=== PATIENT | male | born 1975 | race Caucasian/White ===

== ENCOUNTER 2023-05-04 08:44 | Outpatient (AMB) | payer OTHER, SELFPAY ==
--- NOTE | 2023-05-04 08:47 | A.OFFPC_ITS ---
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 Accompanied by: Self / Same As Patient Allergies amoxicillin [AMOXICILLIN] Allergy (Unknown, Verified 05/04/23 09:07) SWELLING sulfamethoxazole [From BACTRIM] Allergy (Unknown, Verified 05/04/23 09:07) UNKNOWN trimethoprim [From BACTRIM] Allergy (Unknown, Verified 05/04/23 09:07) UNKNOWN Medication List - Last Reconciled 05/04/23 by Alexys Stephens MD No Known Home Meds Tobacco use date assessed: 05/04/23 Dental Screening Dental Screen Date: 05/04/23 Did you have a dental visit in the last 12 months?: Yes Did you have a dental problem in the last 6 months where you did not have access to dental care?: No Was dental information given to patient?: 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 Hwang for some ongoing stomach issues and Dr. Hwang wanted to check him out for any inflammatory bowel disease His procedures came out with positive findings of benign gastric polyps and mi nimal ileitis and proctitis; biopsies were all normal/benign and he was negative for H. pylori [facility] Medical History (Updated 05/04/23 @ 09:35 by Alexys Stephens MD) Obesity (BMI 30-39.9) Surgical History (Updated 05/04/23 @ 09:21 by Alexys Stephens MD) History of colonoscopy (~05/13/15) Hx of esophagogastroduodenoscopy (~05/13/15) No pertinent past surgical history Social History Housing: House Patient Tobacco Use Status: Never used Tobacco e-Cigarette/Vaping Use: Never Used service: No Current occupational status: employed Current occupational exposures/hazards: No Cognitive needs: No Hearing needs: No Vision needs: No Questionnaire PHQ-9 Over the last 2 weeks, how often have you been bothered by any of the following problems? 1. Little interest or pleasure in doing things: several days 2. Feeling down, depressed, or hopeless: not at all 3. Trouble falling or staying asleep, or sleeping too much: not at all 4. Feeling tired or having little energy: not at all 5. Poor appetite or overeating: not at all 6. Feeling bad about yourself - or that you are a failure or have let yourself or your family down: more than half the days 7. Trouble concentrating on things, such as reading the newspaper or watching television: not at all 8. Moving or speaking so slowly that other people could have noticed. Or the opposite - being so fidgety or restless that you have been moving around a lot more than usual: not at all 9. Thoughts that you would be better off or of hurting yourself in some way: not at all Total score: 3 Depression Screening Interpretation: Positive Depression Screening Follow-up: Declines treatment (feels that his situation is under control and he does not need any help at this time) 07237 - PHQ-9 Billing: Yes Source: Developed by Drs. Timothy Menard, Meghan Castro, Raymon Barrios and colleagues, with an educational gera from [employer]. Thrive Questionnaire Date Thrive assessed: 05/04/23 I am a: Patient What is your living situation today?: I have a steady place to live Within the past 12 months, did the food you bought not last and you didn't have the money to get more?: Never true Within the past 12 months, did you worry whether your food would run out before you got money to buy more?: Never true Do you have trouble paying for medicines?: No Do you have trouble getting transportation to medical appointments?: No Do you have trouble paying your heating and electricity bill?: No Do you have trouble taking care of your child, family member or friend?: No Do you have trouble with day-to-day activities such as bathing, preparing meals, shopping, managing finances, etc.?: No Are you currently unemployed and looking for a job?: No Are you interested in more education?: No Please select the resources that you would like help with: None Currently or been in a relationship where the following occur: no concerns reported AUDIT C Alcohol Use Questionnaire (AUDIT-C) 1. How often do you have a drink containing alcohol?: Never 3. How often do you have six or more drinks on one occasion?: Never Total Score: 0 Score Reviewed/Action Taken: Yes TIARA-7 AMB Questionnaire TIARA-7 Date TIARA - 7 assessed: 05/04/23 Feeling nervous, anxious, or on edge: 0 = Not at all Not being able to stop or control worryin = Not at all Worrying too much about different things: 0 = Not at all Trouble relaxin = Not at all Being so restless that it is hard to sit still: 0 = Not at all Becoming easily annoyed or irritable: 0 = Not at all Feeling afraid as if something awful might happen: 0 = Not at all Total TIARA-7 score (0-4 normal; 5-9 mild; 10-14 moderate; 15-21 severe): 0 Source: Developed by Drs. Timothy Menard, Meghan Castro, Raymon Barrios and colleagues, with an educational gera from [employer]. Review of Systems Const Denies chills, Denies difficulty sleeping, Denies fatigue, Denies fever(s), Denies headache(s), Denies malaise and Denies weakness Eyes Denies blurry vision, Denies change in vision, Denies irritation and Denies itchy eyes ENT Denies dysphagia, Denies dizziness, Denies otalgia, Denies headache(s), Denies nasal congestion, Denies neck pain, Denies odynophagia and Denies sore throat Card Denies chest pain, Denies rapid heart rate, Denies irregular heart rhythm, Denies palpitations and Denies dyspnea Resp Denies chest congestion, Denies cough, Denies dyspnea and Denies wheezing GI Denies abdominal pain, Denies bloating, Denies constipation, Denies dysphagia, Denies heartburn, Denies diarrhea, Denies nausea, Denies odynophagia and Denies vomiting Denies hematuria, Denies difficulty urinating, Denies dysuria, Denies urinary frequency and Denies urinary urgency Musc Denies back pain, Denies arthralgias, Denies joint swelling, Denies muscle weakness and Denies neck pain Skin/Breast Denies change in pigmentation, Denies lesions, Denies rash and Denies unusual bruising Neuro Denies dizziness, Denies headache(s), Denies paresthesias and Denies weakness Endo Denies fatigue and Denies palpitations Aller/Immun Denies itchy eyes and Denies wheezing Physical exam (Primary Care) Vital Signs: Last Vital Signs Pulse 65 05/04/23 08:55 BP 136/82 05/04/23 08:55 Pulse Ox 97 05/04/23 08:55 Oxygen Delivery Method Room Air 05/04/23 08:55 BMI result Body Mass Index 39.1 Tobacco/Smoking Status: Tobacco use Status Tobacco use date assessed 05/04/23 05/04/23 08:47 Patient Tobacco Use Status Never used Tobacco 05/04/23 09:02 e-Cigarette/Vaping Use Never Used 05/04/23 09:02 PHQ-9: PHQ-9 Score PHQ-9: Total score 6 05/04/23 09:02 Depression Screening Interpretation: Positive Depression Screening Follow-up: Declines treatment (feels that his situation is under control and he does not need any help at this time) Thrive Assessment: Date of Thrive Assessment Date Thrive assessed 05/04/23 05/04/23 09:02 Currently or been in a relationship where the following occur: no concerns reported Const General: no acute distress, alert and awake Orientation/consciousness: patient oriented x3 HENMT Head: Yes normocephalic and Yes atraumatic Ears: external ears normal, TM's normal bilaterally and EAC's normal General nose exam: No nasal discharge present Face and sinus: Yes normal facial exam and Yes sinuses nontender Teeth and gingiva: dentition normal Throat: Yes posterior oropharynx normal and Yes tonsils normal (no TP congestion) Eyes Eyelids: Yes eyelids normal Conjunctivae: conjunctivae normal Pupils: Equal, round and reactive pupils present EOM: EOMs intact bilaterally Neck Neck: Yes no lymphadenopathy and Yes supple Thyroid: Thyroid normal Resp Auscultation: clear to auscultation bilaterally, no rales and no wheezes Cardio Rate: regular rate Rhythm: regular rhythm Heart sounds: no murmurs GI Palpation (GI): Soft to palpation, nontender and No hepatosplenomegaly present Auscultation: normal bowel sounds General: Yes no CVA tenderness Back/Spine/Pelvis Back: no CVA tenderness Thoracic/Lumbar Spine: thoracic and lumbar spine normal to inspection Skin Lesions: no lesions Rashes: no rashes Neuro General: patient oriented x3, moves all extremities, no focal motor deficits and CN's II-XI intact bilaterally Cranial nerves: Yes Equal, round and reactive pupils present Cognition (Neuro): normal cognition Gait exam (Neuro): Normal gait present Extrem General: Yes no clubbing, cyanosis or edema Assessment and Plan Assessment & Plan (1) Annual physical exam: Code(s): Z00.00 - Encounter for general adult medical examination without abnormal findings Plan: Check labs - advised that we will reach out to him if any of his labs come back with unusual or unexpected results He had a grossly normal colonoscopy done back in 2014; advised that we now recommend starting colonoscopy screening at age 46 but as he had a normal colonoscopy done about 8 years ago, he can either choose to get another one done now or wait another year or two to get his next procedure done - patient prefers to wait at least another year before revisiting this (2) Positive depression screening: Code(s): Z13.31 - Encounter for screening for depression Plan: He reports that his symptoms are mostly mild and he does not feel that he needs any help or any intervention or counseling at this time Advised that he can call at any time if he feels that his depression/mood is getting worse (3) Obesity (BMI 30-39.9): Code(s): E66.9 - Obesity, unspecified Plan: Discussed diet, exercise as tolerated, lose weight Plan To return in 1 year for his next annual physical examination Orders: Orders Comprehensive [place]. Panel Fast Today E66.9 - Obesity, unspecified, Z00.00 - Encounter for general adult medical examination without abnormal findings Lipid Panel Today E66.9 - Obesity, unspecified, E78.00 - Pure hypercholesterolemia, unspecified, Z00.00 - Encounter for general adult medical examination without abnormal findings Prostate Specific Antigen Scr Today Z00.00 - Encounter for general adult medical examination without abnormal findings TSH reflex Free T4 Today E66.9 - Obesity, unspecified, Z00.00 - Encounter for general adult medical examination without abnormal findings Vitamin D 25-OH Total Today E55.9 - Vitamin D deficiency, unspecified, Z00.00 - Encounter for general adult medical examination without abnormal findings Complete Blood Count Auto Diff Today E66.9 - Obesity, unspecified, Z00.00 - Encounter for general adult medical examination without abnormal findings UA CC w/rflx Micro + Cult Today R30.0 - Dysuria, Z00.00 - Encounter for general adult medical examination without abnormal findings Coding Level of Care Code New Pt Prev Care 40-64y(57384) Diagnoses Annual physical exam Z00.00 Positive depression screening Z13.31 Obesity (BMI 30-39.9) E66.9
[2023-05-04 08:55] VITALS: BP 136/82; PULSE 65; O2SAT 97; BMI 39.1
[2023-05-04 09:26] VITALS: BP 120/78
== END 2023-05-04 09:28 | disposition home or self-care (01) ==
PROVIDERS: PCP Internal Medicine; Visit Provider Internal Medicine
DX: Z00.00 Encounter for general adult medical examination without abnormal findings (principal); E66.9 Obesity, unspecified; Z68.39 Body mass index [BMI] 39.0-39.9, adult
CPT/HCPCS: 99386

== ENCOUNTER 2023-11-04 09:19 | Outpatient (REF) | payer OTHER, SELFPAY ==
[2023-11-04 09:32] LABS: MANUAL DIFF FLAG NO
[2023-11-04 10:35] LABS: Basophils Percent Auto 0.5 % (0-2); Eosinophils Absolute Auto 0.1 X10*3/uL (0.0-0.4); Eosinophils Percent Auto 0.9 % (0-4); Hematocrit 45.1 % (42.0-52.0); Hemoglobin 15.2 g/dl (14.0-18.0); Imm Gran Abs Auto 0.02 X10*3/uL (0.00-0.03); Imm Gran Pct Auto 0.3 % (0.0-0.4); Lymphocytes Percent Auto 17.7 % (20-40); Mean Corpuscular HGB Conc 33.7 g/dl (31.0-36.0); Mean Corpuscular Volume 83.2 fL (80.0-98.0); Mean Platelet Volume 9.9 fL (9.4-12.4); Monocytes Absolute Auto 0.7 X10*3/uL (0.1-1.2); Monocytes Percent Auto 11.3 % (2-11); Neutrophils Percent Auto 69.3 % (45-73); Platelet Count 241 X10*3/uL (160-400); Red Blood Count 5.42 X10*6/uL (4.60-5.80); White Blood Count 5.8 X10*3/uL (4.8-10.8)
[2023-11-04 10:37] LABS: Appearance Urine Clear; Color Urine Yellow; Glucose Urine UA >=1000 mg/dL (Negative); Leukocyte Esterase Urine Negative (Negative); Nitrite Urine Negative (Negative); PH 5.5 (5.0-9.0); Specific Gravity - Urine >= 1.030 (1.005-1.025); UMIC TRIGGER UACC YES; Urine Blood Negative (Negative); Urine Ketones Trace mg/dL (Negative); Urine Protein Trace mg/dL (Neg-Trace)
[2023-11-04 10:50] LABS: Bacteria Urine None Seen (None Seen); Hyaline Casts Urine 0-2 /LPF (0-2); RBC Urine 0-2 /HPF (0-2); Squamous Epithelial Cell Urine 0-2 /HPF (0-2); WBC Urine 0-5 /HPF (0-5)
[2023-11-04 11:08] LABS: Alanine Aminotransferase 30 U/L (0-40); Albumin Level 4.5 g/dL (3.5-5.0); Alkaline Phosphatase 68 U/L (39-117); Anion Gap 14 (12-20); Aspartate Amino Transferase 20 U/L (5-37); Bilirubin Total 0.6 mg/dL (0.0-1.0); Blood Urea Nitrogen 14 mg/dL (9-16); Calcium 9.7 mg/dL (8.4-10.2); Carbon Dioxide 30 mmol/L (22-29); Chloride 103 mmol/L (96-108); Cholesterol 202 mg/dL (<200); Estimated Glomerular Filt Rate > 60; Glucose Fasting 243 mg/dL (60-99); HDL Cholesterol 47 mg/dL (>40); LDL Cholesterol Calculated 145 mg/dL (<100); Potassium 4.1 mmol/L (3.3-5.1); Sodium 143 mmol/L (135-145); Total Protein 7.3 g/dL (6.5-8.0); Triglycerides 54 mg/dL (<150)
[2023-11-04 11:25] LABS: Prostate Specific Antigen Scr 0.73 ng/mL (<0.05-4.0); TSH reflex Free T4 0.51 uIU/mL (0.32-4.0); Vitamin D 25-OH Total 7.4 ng/mL (>30)
== END 2023-11-04 09:20 | disposition home or self-care (01) ==
LOC: HO.LAB 09:19
PROVIDERS: PCP Internal Medicine; Visit Provider Internal Medicine
DX: Z00.00 Encounter for general adult medical examination without abnormal findings (principal); Z12.5 Encounter for screening for malignant neoplasm of prostate; E66.9 Obesity, unspecified; E55.9 Vitamin D deficiency, unspecified; E78.00 Pure hypercholesterolemia, unspecified
CPT/HCPCS: 36415; 80053; 80061; 81001; 82306; 84153; 84443; 85025

== ENCOUNTER 2024-05-22 09:57 | Outpatient (AMB) | payer OTHER, SELFPAY ==
[2024-05-22 09:58] VITALS: BP 140/98; PULSE 66; O2SAT 97; BMI 37.2
--- NOTE | 2024-05-22 09:58 | MHC.PC.OV ---
Vital Signs 05/22/24 09:58 Height 5 ft 8 in Weight 245 lb BMI 37.2 BP 140/98 H Blood Pressure Location Lt brachial Position Sitting Pulse 66 Pulse Source Pulse Oximeter Pulse Oximetry (%) 97 Oxygen Delivery Method Room Air Intake Visit Reasons: annual exam Intake Note: Patient is here today for a physical. 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 Allergies amoxicillin [AMOXICILLIN] Allergy (Unknown, Verified 05/22/24 10:23) SWELLING sulfamethoxazole [From BACTRIM] Allergy (Unknown, Verified 05/22/24 10:23) UNKNOWN trimethoprim [From BACTRIM] Allergy (Unknown, Verified 05/22/24 10:23) UNKNOWN Medication List - Last Reconciled 05/22/24 by Annmarie Feng PA-C cholecalciferol (vitamin D3) 25 mcg PO DAILY sildenafil 50 mg PO DAILY PRN Tobacco use date assessed: 05/22/24 Dental Screening Dental Screen Date: 05/22/24 Did you have a dental visit in the last 12 months?: Yes Did you have a dental problem in the last 6 months where you did not have access to dental care?: No Was dental information given to patient?: Patient has dentist HPI annual exam HPI Details 48-year-old male with past medical history of obesity last seen by Dr. Stephens coming in for annual visit. Last colonoscopy 2014 no polyps will be due next May. Patient has no acute concerns today. [facility] Medical History Obesity (BMI 30-39.9) Surgical History Hx of esophagogastroduodenoscopy (~05/13/15) History of colonoscopy (~05/13/15) No pertinent past surgical history Social History Housing: House Patient Tobacco Use Status: Never used Tobacco e-Cigarette/Vaping Use: Never Used service: No Current occupational status: employed Current occupational exposures/hazards: No Cognitive needs: No Hearing needs: No Vision needs: No Questionnaire PHQ-9 Over the last 2 weeks, how often have you been bothered by any of the following problems? 1. Little interest or pleasure in doing things: not at all 2. Feeling down, depressed, or hopeless: not at all 3. Trouble falling or staying asleep, or sleeping too much: not at all 4. Feeling tired or having little energy: not at all 5. Poor appetite or overeating: not at all 6. Feeling bad about yourself - or that you are a failure or have let yourself or your family down: not at all 7. Trouble concentrating on things, such as reading the newspaper or watching television: not at all 8. Moving or speaking so slowly that other people could have noticed. Or the opposite - being so fidgety or restless that you have been moving around a lot more than usual: not at all 9. Thoughts that you would be better off or of hurting yourself in some way: not at all Total score: 0 Depression Screening Interpretation: Negative Depression Screening Done: Yes 21407 - PHQ-9 Billing: Yes Source: Developed by Drs. Timothy Menard, Meghan Castro, Raymon Barrios and colleagues, with an educational gera from [employer]. Thrive Questionnaire Date Thrive assessed: 05/22/24 I am a: Patient What is your living situation today?: I have a steady place to live Within the past 12 months, did the food you bought not last and you didn't have the money to get more?: Never true Within the past 12 months, did you worry whether your food would run out before you got money to buy more?: Never true Do you have trouble paying for medicines?: No Do you have trouble getting transportation to medical appointments?: No Do you have trouble paying your heating and electricity bill?: No Do you have trouble taking care of your child, family member or friend?: No Do you have trouble with day-to-day activities such as bathing, preparing meals, shopping, managing finances, etc.?: No Are you currently unemployed and looking for a job?: No Are you interested in more education?: No Please select the resources that you would like help with: None Currently or been in a relationship where the following occur: No concerns reported THRIVE Score: 0 AUDIT C Alcohol Use Questionnaire (AUDIT-C) 1. How often do you have a drink containing alcohol?: Never 3. How often do you have six or more drinks on one occasion?: Never Total Score: 0 TIARA-7 AMB Questionnaire TIARA-7 Date TIARA - 7 assessed: 05/22/24 Feeling nervous, anxious, or on edge: 0 = Not at all Not being able to stop or control worryin = Not at all Worrying too much about different things: 0 = Not at all Trouble relaxin = Not at all Being so restless that it is hard to sit still: 0 = Not at all Becoming easily annoyed or irritable: 0 = Not at all Feeling afraid as if something awful might happen: 0 = Not at all Total TIARA-7 score (0-4 normal; 5-9 mild; 10-14 moderate; 15-21 severe): 0 Source: Developed by Drs. Timothy Menard, Meghan Castro, Raymon Barrios and colleagues, with an educational gera from [employer]. TIARA-7 Assessment Billing TIARA-7 Assessment Tool: TIARA-7 Assessment 61485 Review of Systems Const Denies body aches, Denies fatigue, Denies fever(s), Denies frequent falls, Denies headache(s) and Denies weakness Eyes Reports no additional complaints and Denies change in vision ENT Denies dysphagia, Denies dizziness, Denies facial pain, Denies headache(s), Denies nasal congestion and Denies odynophagia Card Denies chest pain, Denies syncope, Denies irregular heart rhythm, Denies leg edema, Denies lightheadedness and Denies dyspnea Resp Denies cough and Denies dyspnea GI Denies constipation, Denies dysphagia, Denies dyspepsia, Denies diarrhea, Denies nausea, Denies odynophagia and Denies vomiting Denies dysuria, Denies urinary frequency, Denies urinary hesitancy and Denies urinary urgency Musc Denies back pain and Denies myalgias Skin/Breast Reports system reviewed and no additional complaints, except as documented Neuro Denies dizziness, Denies syncope, Denies frequent falls, Denies headache(s) and Denies weakness Psych Reports no additional complaints Endo Denies fatigue Physical exam (Primary Care) Vital Signs: Last Vital Signs Pulse 66 05/22/24 09:58 BP 140/98 H 05/22/24 09:58 Pulse Ox 97 05/22/24 09:58 Oxygen Delivery Method Room Air 05/22/24 09:58 BMI result Body Mass Index 37.2 Tobacco/Smoking Status: Tobacco use Status Tobacco use date assessed 05/22/24 05/22/24 09:59 Patient Tobacco Use Status Never used Tobacco 05/22/24 09:59 e-Cigarette/Vaping Use Never Used 05/22/24 09:59 PHQ-9: PHQ-9 Score PHQ-9: Total score 0 05/22/24 10:06 Depression Screening Interpretation: Negative Thrive Assessment: Date of Thrive Assessment Date Thrive assessed 05/22/24 05/22/24 09:59 Currently or been in a relationship where the following occur: No concerns reported Const General: cooperative, healthy appearing, comfortable and no acute distress Orientation/consciousness: patient oriented x3 HENMT Head: Yes normocephalic Ears: hearing grossly normal bilaterally General nose exam: Normal external nose present Face and sinus: Yes normal facial exam and Yes sinuses nontender Mouth: Normal oral and palatal mucosa present and tongue normal Throat: Yes posterior oropharynx normal Eyes General: appearance normal, both eyes and all related structures Conjunctivae: conjunctivae normal Pupils: Equal, round and reactive pupils present EOM: EOMs intact bilaterally and No Nystagmus present Neck Neck: Yes full ROM and Yes no lymphadenopathy Chest Chest palpation & inspection: normal inspection of the chest Resp Effort & Inspection: normal respiratory effort Auscultation: clear to auscultation bilaterally, no crackles, no rales, no rhonchi and no wheezes Cardio Rate: regular rate Rhythm: regular rhythm Peripheral pulses: radial pulses present and dorsalis pedis present GI Inspection: Yes normal to inspection and No Abdominal wall edema Palpation (GI): Soft to palpation, not firm and nontender Auscultation: normal bowel sounds Rectal Exam - Male: Yes deferred General: Yes no CVA tenderness Back/Spine/Pelvis Back: no CVA tenderness Skin General skin exam: no rashes or lesions noted Neuro General: patient oriented x3 Cranial nerves: Yes Equal, round and reactive pupils present, Yes Midline tongue present, Yes Ability to bilaterally elevate shoulders present and No Nystagmus present Gait exam (Neuro): Normal gait present Extrem General: Yes normal to inspection, Yes full ROM and No edema Psych Speech and movement: Normal speech and movement present Affect: normal affect Attitude: cooperative Insight: Good insight present (Psych) Judgement: Good judgement present (Psych) Assessment and Plan Assessment & Plan (1) Annual physical exam: Code(s): Z00.00 - Encounter for general adult medical examination without abnormal findings Plan: Patient is up-to-date on all recommended routine screenings and vaccinations for his age. He is unsure of his last day of his tetanus shot but declines at this visit. Ordered for updated cholesterol and A1c for further evaluation. (2) Obesity (BMI 30-39.9): Code(s): E66.9 - Obesity, unspecified Plan: Patient states his diet is very poor. Recommend healthy diet and regular exercise. (3) Elevated blood pressure reading without diagnosis of hypertension: Code(s): R03.0 - Elevated blood-pressure reading, without diagnosis of hypertension Plan: Blood pressure was elevated in the office today patient states he has never had any problem with his blood pressure but does have a very poor diet. Advised patient to get [id number] blood pressure cuff and take blood pressure 3 to 4 times per week and keep a log to bring to next appointment. If blood pressures are persistently over 140/90 to reach out to the office. Plan This note was constructed using voice recognition software. While every effort has been made to ensure accuracy and security system engineer, still areas may have been included sometimes these areas may affect the content or meeting of the given symptoms. Total time spent caring for the patient today was 30 minutes. This includes time spent before the visit reviewing the chart, time spent during the visit, and time spent after the visit and documentation. Orders: Orders Hemoglobin A1c Today Z13.1 - Encounter for screening for diabetes mellitus Lipid Panel Today Z00.00 - Encounter for general adult medical examination without abnormal findings Coding Level of Care Code Est Pt Prev Care 40-64y(83776) Diagnoses Annual physical exam Z00.00 Obesity (BMI 30-39.9) E66.9 Elevated blood pressure reading without diagnosis of hypertension R03.0 Additional Codes TIARA-7 Assessment Billing - TIARA-7 Assessment Tool: TIARA-7 Assessment 46091 ([id number])
== END 2024-05-22 10:39 | disposition home or self-care (01) ==
PROVIDERS: PCP Internal Medicine
DX: Z00.00 Encounter for general adult medical examination without abnormal findings (principal); E66.9 Obesity, unspecified; R03.0 Elevated blood-pressure reading, without diagnosis of hypertension; Z68.37 Body mass index [BMI] 37.0-37.9, adult
CPT/HCPCS: 99396

== ENCOUNTER 2025-02-21 15:47 | Outpatient (AMB) | payer OTHER, SELFPAY ==
[2025-02-21 16:15] VITALS: BP 150/98; PULSE 64; RESP 18; TEMP 36.9; O2SAT 97; BMI 37.9
--- NOTE | 2025-02-21 16:15 | MHC.PC.OV ---
Vital Signs 02/21/25 16:15 Height 5 ft 8 in Weight 249 lb 3.2 oz BMI 37.9 BP 150/98 H Blood Pressure Location Lt brachial Position Sitting Respiration 18 Pulse 64 Pulse Source Pulse Oximeter Temp 98.4 F Temp Source Oral Pulse Oximetry (%) 97 Oxygen Delivery Method Room Air Intake Visit Reasons: f/u HLD and HTN Hat Renovator Required: No Accompanied by: Spouse Allergies amoxicillin [AMOXICILLIN] Allergy (Unknown, Verified 02/21/25 16:19) SWELLING sulfamethoxazole [From BACTRIM] Allergy (Unknown, Verified 02/21/25 16:19) UNKNOWN trimethoprim [From BACTRIM] Allergy (Unknown, Verified 02/21/25 16:19) UNKNOWN Medication List - Last Reconciled 02/21/25 by GEOFF Preston metformin 1,000 mg PO BID sildenafil 50 mg PO DAILY PRN Tobacco use date assessed: 02/21/25 Dental Screening Dental Screen Date: 02/21/25 Did you have a dental visit in the last 12 months?: Yes Did you have a dental problem in the last 6 months where you did not have access to dental care?: No Was dental information given to patient?: Patient has dentist HPI f/u HLD and HTN HPI Details The patient is a 49 year old male presenting for follow up appointment on HLD, HTN and new diagnosis of diabetes. On 01/31/2025 the patient went into [place] ED with complaints of weakness. 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 He reports that he started feeling weak and floppy, followed by perfused sweating. The patient went into the emergency room with complaints of racing heartbeats and mild shortness of breath, but no chest pain. His blood pressure was 208/118, then 170/110 couple was after. EKG NSR with no ST-wave changes. Glucose 565 with normal anion gap and bicarb level. A1c 12.7, LDL 174, total cholesterol 245, HDL 55. Chest x-ray unremarkable. The patient is presenting today accompanied by his with concerns of the new diagnosis of diabetes. Per chart review, the patient had an elevated fasting glucose 243 on 11/04/2023. He was seen in May 2024 in office, and was ordered repeat lipid panel and A1c. Per patient, he did not get these tests done because he did not think that his condition was as serous. The patient was started on Meformin 1000mg BID in the ER and he was instructed to follow-up with PCP. [facility] Medical History Obesity (BMI 30-39.9) Surgical History Hx of esophagogastroduodenoscopy (~05/13/15) History of colonoscopy (~05/13/15) No pertinent past surgical history Social History Housing: House Patient Tobacco Use Status: Never used Tobacco e-Cigarette/Vaping Use: Never Used service: No Current occupational status: employed Current occupational exposures/hazards: No Cognitive needs: No Hearing needs: No Vision needs: No Questionnaire PHQ-9 Over the last 2 weeks, how often have you been bothered by any of the following problems? 1. Little interest or pleasure in doing things: not at all 2. Feeling down, depressed, or hopeless: not at all 3. Trouble falling or staying asleep, or sleeping too much: not at all 4. Feeling tired or having little energy: not at all 5. Poor appetite or overeating: not at all 6. Feeling bad about yourself - or that you are a failure or have let yourself or your family down: not at all 7. Trouble concentrating on things, such as reading the newspaper or watching television: not at all 8. Moving or speaking so slowly that other people could have noticed. Or the opposite - being so fidgety or restless that you have been moving around a lot more than usual: not at all 9. Thoughts that you would be better off or of hurting yourself in some way: not at all Total score: 0 Depression Screening Interpretation: Negative Depression Screening Done: Yes 48325 - PHQ-9 Billing: Yes Source: Developed by Drs. Timothy Menard, Meghan Castro, Raymon Barrios and colleagues, with an educational gera from [employer]. Thrive Questionnaire Date Thrive assessed: 02/21/25 I am a: Patient What is your living situation today?: I have a steady place to live Within the past 12 months, did the food you bought not last and you didn't have the money to get more?: Never true Within the past 12 months, did you worry whether your food would run out before you got money to buy more?: Never true Do you have trouble paying for medicines?: No Do you have trouble getting transportation to medical appointments?: No Do you have trouble paying your heating and electricity bill?: No Do you have trouble taking care of your child, family member or friend?: No Do you have trouble with day-to-day activities such as bathing, preparing meals, shopping, managing finances, etc.?: No Are you currently unemployed and looking for a job?: No Are you interested in more education?: No Please select the resources that you would like help with: None Currently or been in a relationship where the following occur: No concerns reported THRIVE Score: 0 AUDIT C Alcohol Use Questionnaire (AUDIT-C) 1. How often do you have a drink containing alcohol?: Never Total Score: 0 Score Reviewed/Action Taken: No TIARA-7 AMB Questionnaire TIARA-7 Date TIARA - 7 assessed: 02/21/25 Feeling nervous, anxious, or on edge: 0 = Not at all Not being able to stop or control worryin = Not at all Worrying too much about different things: 0 = Not at all Trouble relaxin = Not at all Being so restless that it is hard to sit still: 0 = Not at all Becoming easily annoyed or irritable: 0 = Not at all Feeling afraid as if something awful might happen: 0 = Not at all Total TIARA-7 score (0-4 normal; 5-9 mild; 10-14 moderate; 15-21 severe): 0 Source: Developed by Drs. Timothy Menard, Meghan Castro, Raymon Barrios and colleagues, with an educational gera from [employer]. TIARA-7 Assessment Billing TIARA-7 Assessment Tool: ITARA-7 Assessment 12987 Review of Systems Const Denies headache(s) Eyes Denies loss of vision ENT Denies vertigo, Denies dizziness, Denies headache(s) and Denies sore throat Card Denies chest pain, Denies leg edema and Denies lightheadedness Resp Denies cough, Denies hemoptysis and Denies wheezing GI Denies abdominal pain, Denies melena, Denies constipation, Denies diarrhea and Denies vomiting Denies dysuria, Denies urinary frequency and Denies urinary urgency Musc Denies arthralgias, Denies joint swelling, Denies numbness and Reports tingling (in fingers intermittently) Skin/Breast Denies lesions and Denies rash Neuro Denies Abnormal speech present, Denies behavioral changes, Denies vertigo, Denies dizziness, Denies headache(s), Denies loss of vision, Denies memory loss, Denies numbness and Reports tingling (in fingers intermittently) Psych Denies anxiety, Denies behavioral changes, Denies depression, Denies memory loss and Denies panic attacks Jared/Lymph Denies easy bleeding and Denies easy bruising Aller/Immun Denies wheezing Physical exam (Primary Care) Vital Signs: Last Vital Signs Temp 98.4 F 02/21/25 16:15 Pulse 64 02/21/25 16:15 Resp 18 02/21/25 16:15 BP 150/98 H 02/21/25 16:15 Pulse Ox 97 02/21/25 16:15 Oxygen Delivery Method Room Air 02/21/25 16:15 BMI result Body Mass Index 37.9 Tobacco/Smoking Status: Tobacco use Status Tobacco use date assessed 02/21/25 02/21/25 16:21 Patient Tobacco Use Status Never used Tobacco 02/21/25 16:21 e-Cigarette/Vaping Use Never Used 02/21/25 16:21 PHQ-9: PHQ-9 Score PHQ-9: Total score 0 02/21/25 17:18 Depression Screening Interpretation: Negative Thrive Assessment: Date of Thrive Assessment Date Thrive assessed 02/21/25 02/21/25 16:21 Currently or been in a relationship where the following occur: No concerns reported Const General: healthy appearing, no acute distress, alert and awake Nutritional Appearance: well nourished Orientation/consciousness: oriented to person, oriented to place and oriented to time HENMT Ears: TM's normal bilaterally General nose exam: Normal nasal mucous membranes and turbinates present Eyes Conjunctivae: conjunctivae normal Sclerae: sclerae normal Pupils: Equal, round and reactive pupils present Neck Neck: Yes no lymphadenopathy and Yes no JVD Thyroid: Thyroid normal Carotids: no bruits Resp Effort & Inspection: normal respiratory effort and not tachypneic Auscultation: no crackles, no rales, no rhonchi and no wheezes Cardio Rate: regular rate Rhythm: regular rhythm Heart sounds: no murmurs and normal S1 and S2 GI Palpation (GI): Soft to palpation, nontender, no hepatomegaly and no splenomegaly Auscultation: normal bowel sounds Skin General skin exam: no rashes or lesions noted and dry skin Neuro General: oriented to person, oriented to place and oriented to time Cranial nerves: Yes Equal, round and reactive pupils present Speech: No Abnormal speech present Gait exam (Neuro): Normal gait present Motor exam (neuro): no tremor noted Extrem Right upper extremity: full ROM Left upper extremity: full ROM Right lower extremity: full ROM; no edema Left lower extremity: full ROM; no edema Psych Mental Status: mental status grossly normal Speech and movement: Normal speech and movement present Affect: normal affect Attitude: cooperative Thought process: Normal thought process present Coding Level of Care Code Est Pt Level 4 (21134) Diagnoses Hyperlipidemia, unspecified hyperlipidemia type E78.5 Hyperlipidemia type: unspecified Elevated blood pressure reading without diagnosis of hypertension R03.0 Uncontrolled type 2 diabetes mellitus with hyperglycemia E11.65 Diabetes mellitus type: type 2 Additional Codes TIARA-7 Assessment Billing - TIARA-7 Assessment Tool: TIARA-7 Assessment 16787 ([id number]) PHQ-9 - 91151 - PHQ-9 Billing: Yes ([id number]) Time Spent (min) 43 Assessment & Plan Assessment & Plan (1) HLD (hyperlipidemia): Code(s): E78.5 - Hyperlipidemia, unspecified Category: Medical Qualifiers: Hyperlipidemia type: unspecified Qualified Code(s): E78.5 - Hyperlipidemia, unspecified Plan: t-chol 245, ldl 174, hdl 55 start atorvastatin 10 at bedtime Discussed lifestyle modifications including dietary changes and physical activity We will check lipid panel in 3 months (2) Elevated blood pressure reading without diagnosis of hypertension: Code(s): R03.0 - Elevated blood-pressure reading, without diagnosis of hypertension Category: Medical Plan: Blood pressure elevated at 150/98, continue to be elevated on rechecks Started lisinopril 10 mg daily Return in 1 week for blood pressure check by nurse Encouraged to check blood pressure at home frequently Reinforced low-salt diet and activity as tolerated (3) Uncontrolled diabetes mellitus with hyperglycemia: Code(s): E11.65 - Type 2 diabetes mellitus with hyperglycemia Category: Medical Qualifiers: Diabetes mellitus type: type 2 Qualified Code(s): E11.65 - Type 2 diabetes mellitus with hyperglycemia Plan: Patient was started on metformin to a 1000 mg b.i.d. in the ED. he verbalized medication compliance but reports that the side effects have been very bad. He is constantly running to the bathroom. Metformin 1000 mg ER b.i.d. ordered. Lantus 10 units ordered for the patient to start after diabetic teaching. Diabetic supplies were ordered. Return in 1 week for diabetic teaching-nurse visit Will repeat A1C in 3 months Orders: Orders Comprehensive [place]. Panel Fast 3 Months E11.65 - Type 2 diabetes mellitus with hyperglycemia, E66.9 - Obesity, unspecified, E78.5 - Hyperlipidemia, unspecified, Z13.1 - Encounter for screening for diabetes mellitus TSH reflex Free T4 3 Months E11.65 - Type 2 diabetes mellitus with hyperglycemia, E66.9 - Obesity, unspecified, E78.5 - Hyperlipidemia, unspecified, Z13.1 - Encounter for screening for diabetes mellitus Hemoglobin A1c 3 Months E11.65 - Type 2 diabetes mellitus with hyperglycemia, E66.9 - Obesity, unspecified, E78.5 - Hyperlipidemia, unspecified, Z13.1 - Encounter for screening for diabetes mellitus UA CC w/rflx Micro + Cult 3 Months E11.65 - Type 2 diabetes mellitus with hyperglycemia, E66.9 - Obesity, unspecified, E78.5 - Hyperlipidemia, unspecified, Z13.1 - Encounter for screening for diabetes mellitus Microalbumin, Random (w Creat) 3 Months E11.65 - Type 2 diabetes mellitus with hyperglycemia, E66.9 - Obesity, unspecified, E78.5 - Hyperlipidemia, unspecified, Z13.1 - Encounter for screening for diabetes mellitus Lipid Panel 3 Months E11.65 - Type 2 diabetes mellitus with hyperglycemia, E66.9 - Obesity, unspecified, E78.5 - Hyperlipidemia, unspecified, Z13.1 - Encounter for screening for diabetes mellitus Medications: 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,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,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 (Dexcom G7 Triple Valve Mechanic) As directed 1 ea 0RF .65 - Type 2 diabetes mellitus with hyperglycemia blood-glucose sensor (Dexcom G7 Sensor device) As directed 1 ea 0RF E11.65 - Type 2 diabetes mellitus with hyperglycemia atorvastatin 10 mg PO BEDTIME 90 tabs 3RF magnesium oxide 400 mg PO DAILY 90 tabs 3RF metformin ER 1,000 mg (2 x 500 mg) PO BID 60 tabs 3RF E11.65 - Type 2 diabetes mellitus with hyperglycemia insulin glargine (Lantus Solostar U-100 Insulin) 10 units (0.1 mL) subcut DAILY 15 mL 2RF E11.65 - Type 2 diabetes mellitus with hyperglycemia blood-glucose meter (OneMorePalletTouch Verio Reflect Meter) As directed check blood sugar three times a day 1 ea 3RF E11.65 - Type 2 diabetes mellitus with hyperglycemia blood sugar diagnostic (OneTouch Verio test strips) As directed check blood sugar three times a day 100 ea 3RF E11.65 - Type 2 diabetes mellitus with hyperglycemia lancets As directed check blood sugar three times a day 100 ea 3RF E11.65 - Type 2 diabetes mellitus with hyperglycemia lisinopril 10 mg PO DAILY 30 tabs 3RF R03.0 - Elevated blood-pressure reading, without diagnosis of hypertension blood-glucose sensor ([employer] G7 Sensor device) As directed 1 ea 3RF E11.65 - Type 2 diabetes mellitus with hyperglycemia
== END 2025-02-21 17:22 | disposition home or self-care (01) ==
LOC: HO.HMCH 15:48
PROVIDERS: PCP Internal Medicine
DX: E78.5 Hyperlipidemia, unspecified (principal); R03.0 Elevated blood-pressure reading, without diagnosis of hypertension; E11.65 Type 2 diabetes mellitus with hyperglycemia

== ENCOUNTER → 2025-02-21 15:47 | Outpatient (BNVA) | payer OTHER, SELFPAY | PROVIDERS: PCP Internal Medicine | DX: I10 Essential (primary) hypertension (principal); E11.65 Type 2 diabetes mellitus with hyperglycemia; E78.5 Hyperlipidemia, unspecified; R53.1 Weakness; R03.0 Elevated blood-pressure reading, without diagnosis of hypertension; E66.9 Obesity, unspecified; Z68.37 Body mass index [BMI] 37.0-37.9, adult | CPT/HCPCS: 96127 ==

== ENCOUNTER 2025-04-17 07:45 | Outpatient (AMB) | payer OTHER, SELFPAY ==
--- OUTSIDE RECORDS SUMMARY | 2025-04-17 07:47 | XMS_ITS | Patient Health Record ---
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 Name Role Phone Sai (RETIRED) Jeanmarie FOSTER Primary Care Provide r Bj Angeles Jr Unavailable [phone] Allergies Allergen (clinical drug ingredient) Drug/Non Drug Allergy documented on EMR Reaction Allergy Type Onset Date Status sulfamethoxazole / trimethoprim Bactrim Unknown Drug Allergy Active amoxicillin Amoxicillin Unknown Drug Allergy Act fred Reason For Referral No Information Medications Medication SIG (Take, Route, Fr equency, Duration) Notes Start Date End Date Status Suprep Bowel Prep 1 as directed Orally 1 for 1 dose 04/23/2015 Active Omeprazole 20 MG 1 capsule Orally Onc e a day for 30 day(s) 04/23/2015 Active Lorazepam 1 1 tab Oral Active Dicyclomine HCl 20 MG 1 tablet Orally 2- 4 times a day 05/15/2015 Active Anusol-HC 25 MG 1 suppository Rectal At night before bed time for 14 day(s) 05/15/2015 Ac tive Problems Problem Type SNOMED Code ICD Code Onset Dates Problem Status W/U Status Risk Notes Problem [id number] Vomiting (787.03) Active confirmed Problem [id number] Abnormal CT scan , gastrointestinal tract (793.4) Active confirmed Plan Of Treatment Future Test Test Name Order Date UPPER GI ENDOSCOPY 04/23/2015 COLONOSCOPY 04/23/2015 Insurance Providers Payer Name Payer Address Payer Phone Subscriber Number Group Number Insured Name Patient Relationship to Insured Coverage Start Date Coverage End Date [facility] [id number] [place], [place] [id number] [phone] [id number] [address] RIVERA Self - patient is the insured Medical (General) History Medical History History ICD Code Denies OK,DM,CVA,Lung disease,renal dise ase
--- OUTSIDE RECORDS SUMMARY | 2025-04-17 07:47 | XMS_ITS | Clinical Summary ---
Author Organization [facility] Address [address] [place] [phone] Phone Care Team Providers Care Hedge Fund Manager Name Role Phone Jeanmarie Gibbs MD Primary Care Provider Allergies Active Allergy Reactions Criticality Noted Date Comments Amoxicillin Hives 05/21/2019 Swelling of throat Sulfamethoxazole-Trimethoprim Hives 2018 Swelling of throat Penicillins Hives Medium 05/21/2019 Swelling of throat Medications oxyCODONE-aceta minophen (PERCOCET) 5-325 mg per tablet Take 1 tablet by mouth every 4 (four) hours as needed for pain (specific location in comments). Partial fill ok 8 tablet 9 Active Additional Information Patient not taking.Reported on 04/04/2024 tamsulosin (FLOMAX) 0.4 mg Cap Take 1 capsule (0.4 mg total) by mouth daily. 7 capsule 9 Active Additional Information Patient not taking.Reported on 04/04/2024 sildenafiL (VIAGRA) 25 mg tablet Take 25 mg by mouth daily as needed for erectile dysfunction. Active Social History Tobacco Use Types Packs/Day Years Used Date Smoking Tobacco: Never Smokeless Tobacco: Never Alcohol Use Standard Drinks/Week Comments Not Currently 0 (1 standard drink = 0.6 oz pur e alcohol) Education Answer Date Recorded Are you interested in more education? Not on hallie e 01/06/2023 Are you concerned about learning? Not on file 01/06/2023 No 01/06/2023 No 01/06/2023 Digital Access Answer Date Recorded No 02/06/2023 No 02/06/2023 Reliable internet access at home? Not on file 02/06/2023 Device with a working camera? Not on file Sex and Gender Information Value Date Recorded Sex Assigned at Not on file Legal Sex Male 9:27 PM EDT Gender Identity Not on file Sexual Orientation Not on file Last Filed Vital Signs Vital Sign Reading Time Taken Comments Blood Pressure 182/112 04/06/2024 11:11 AM EDT Pulse 83 04/06/2024 10:21 AM EDT Temperature 36.9 C (98.5 F) 04/06/2024 10:21 AM EDT Respiratory Rate 16 04/06/2024 10:21 AM EDT Oxygen Saturation 97% 04/06/2024 10:21 AM EDT Inhaled Oxygen Concentration - - Weight 115.7 kg (255 lb) 04/06/2024 10:21 AM EDT Height 172.7 cm (5' 8 ) 04/06/2024 10:21 AM EDT Body Mass Index 38.77 04/06/2024 10:21 AM EDT Plan of Treatment Health Maintenance Due Date Last Done Comments Adult Td,Tdap Booster 1976 LIPID PANEL 1976 DEPRESSION SCREENING 1988 HEPATITIS C SCREENING 1994 HIV ONE-TIME SCREENING (18-6 5 YEARS) 1994 COLOGUARD 2021 COLONOSCOPY 2021 COLORECTAL CANCER SCREENING 2021 FIT TEST 2021 FOBT 2021 SIGMOIDOSCOPY 2021 VIRTUAL COLONOSCOPY 2021 SCREENING FOR DIABETES 05/21/2022 05/21/2019 COVID-19 VACCINE (3 - 2023-2 5 season) 2024 04/14/2021, 03/24/2021 SMOKING STATUS SCREENING (On ce After 26 Yrs) Completed 04/06/2024 HEPATITIS A VACCINES Aged Out No long er eligible based on patient's age to complete this topic HIB VACCINES Aged Out No longer eligi ble based on patient's age to complete this topic MENINGOCOCCAL VACCINES (ACWY) Aged Out No longer eligible based on patient's age to complete this topic MENINGOCOCCAL VACCINES (B) Aged Out N o longer eligible based on patient's age to complete this topic PNEUMOCOCCAL VACCINES (0-49 years) Aged Out No longer eligible b ased on patient's age to complete this topic Medical Devices Not on file Insurance [address] [place], [place] [id number] [facility] HMO Care Teams Hedge Fund Manager Relationship Specialty Start Date End Date Jeanmarie Gibbs MD [address] [place] [id number] PCP - General Internal Medicine 05/21/19 Additional Source Comments The information contained in this document represents components of the legal health record. It is not the complete legal health record.[facility]
--- NOTE | 2025-04-17 07:56 | A.OFFVIS_ITS ---
Vital Signs 04/17/25 08:02 Height 5 ft 8 in Weight 239 lb 3.225 oz BMI 36.4 BP 112/86 Blood Pressure Location Rt brachial Position Sitting Pulse 60 Pulse Source Pulse Oximeter Pulse Oximetry (%) 96 Oxygen Delivery Method Room Air Intake Visit Reasons: Type 2 diabetes mellitus with hyperglycemia Intake Note: New patient internally referred by PCP for T2DM with Hyperglycemia. Patient receives Dexcom G7 supplies through: [employer]. Last Diabetic Eye exam: a couple months ago, [facility] Last Podiatry Visit: Does not see a Burn Out Scarfing Operator Random Glucose: 141 mg/dl HgA1C: 8.3% 04/17/2025 Distribution Collection Operator Required: No Accompanied by: Spouse Allergies amoxicillin (AMOXICILLIN) Allergy (Unknown, Verified 04/17/25 08:03) SWELLING sulfamethoxazole (From BACTRIM) Allergy (Unknown, Verified 04/17/25 08:03) UNKNOWN trimethoprim (From BACTRIM) Allergy (Unknown, Verified 04/17/25 08:03) UNKNOWN HPI Comments Details: 49 YO M who is seen in consultation for T2DM at the request of PCP. Initially diagnosed with T2DM in 01/2025 . Was initially started on treatment with metformin . Current regimen Lantus 10 units 02/2025 by PCP not started . Metformin 1000mg BID tolerating Has Dexcom Unfortunately, patient did not bring sensor glucometer will log book to visit. GMI 7.1 Reports low sugars rare . Treats lows with protein bar . Checks sugar after to ensure it is rising. Treats according to rule of 15's. Family history of T2DM in father Type 2 . Has eyes checked yearly, last eye exam couple of mos ago , denies retinopathy. Denies neuropathy, not sees podiatry. Denies nephropathy, on SANDI/ARB. UAC [] as measured on []. Has HLD, on statin. Last LDL 11/04. Repeat requested by primary care provider Denies CAD. Not Had diabetes education. [facility] Medical History Obesity (BMI 30-39.9) Surgical History Hx of esophagogastroduodenoscopy (~05/13/15) History of colonoscopy (~05/13/15) No pertinent past surgical history Social History Housing: House Patient Tobacco Use Status: Never used Tobacco e-Cigarette/Vaping Use: Never Used service: No Current occupational status: employed Current occupational exposures/hazards: No Cognitive needs: No Hearing needs: No Vision needs: No Physical Exam Vital Signs: Last Vital Signs Pulse 60 04/17/25 08:02 BP 112/86 04/17/25 08:02 Pulse Ox 96 04/17/25 08:02 Oxygen Delivery Method Room Air 04/17/25 08:02 BMI result Body Mass Index 36.4 Absence of Cushingoid features. Absence of acromegalic features. Neck exam reveals nl size thyroid about 15 gms. No thyroid nodules palpable. No carotid bruits present. Lungs CTA. Heart S1 S2, Reg R/R. No M/R/ G. Skin exam reveals absence of vitiligo or acanthosis nigricans. Abdominal exam reveals Soft NT/ND with NA BS. No organomegaly present. Neck Other: . Extrem Other: Visual exam of foot performed. No ulcerations or open lesions. No onchomycosis, no callouses.Pulses 2 + distally Sensation intact to monofilament exam. Vibratory sensation sensed is decreased with 128 Hz tuning fork Results AMB Hemoglobin A1c AMB Hemoglobin A1c 8.3 % Last Edit by AMANDA Crawford on 04/17/25 08:27 Results Reviewed Results Reviewed: Laboratory Last Values Glucose (Clinic) 141 mg/dL (60-115) H 04/17/25 08:09 Assessment & Plan Assessment & Plan (1) Uncontrolled diabetes mellitus with hyperglycemia: Code(s): E11.65 - Type 2 diabetes mellitus with hyperglycemia Category: Medical Qualifiers: Diabetes mellitus type: type 2 Qualified Code(s): E11.65 - Type 2 diabetes mellitus with hyperglycemia Plan: This is a 49-year-old white male with a history of type 2 diabetes being treated with metformin and basal insulin with poor but improving glycemic control and no known microvascular or macrovascular complications The plan is to have the patient check his point of cares pre and post meals what to use the Dexcom sensor and to bring the sensor to follow up appointments. We will talk to the patient about potentially starting a G LP 1 today like Mounjaro. Went over side effects of Mounjaro including but not limited to nausea, vomiting and rare risk of pancreatitis. Once we have more data, could consider adjusting the insulin regimen. We will send patient to certified adapted physical educator and eviction specialist. We will ask patient to check lipid profile microalbumin to creatinine ratio as ordered by patient's primary care provider. Blood pressure management as per patient's primary care provider. Went over with the patient the correlation of poor glycemic control to development of progression of complications. May consider stopping basal insulin future if patient responds and is tolerant of the G LP 1 Orders: Orders AMB Hemoglobin A1c Today E11.65 - Type 2 diabetes mellitus with hyperglycemia Referrals Nutrition/Dietitian Referral E11.65 - Type 2 diabetes mellitus with hyperglycemia Diabetes Education Referral E11.65 - Type 2 diabetes mellitus with hyperglycemia Medications: New tirzepatide (Mounjaro) for 4 weeks 2.5 mg (0.5 mL) subcut QWEEK 2 mL 5RF Coding Level of Care Code New Pt Level 5 (61219) Diagnoses Uncontrolled type 2 diabetes mellitus with hyperglycemia E11.65 Diabetes mellitus type: type 2 Time Spent (min) 60
[2025-04-17 08:02] VITALS: BP 112/86; PULSE 60; O2SAT 96; BMI 36.4
[2025-04-17 08:13] LABS: Glucose, Whole Blood 141 mg/dL (60-115)
== END 2025-04-17 08:44 | disposition home or self-care (01) ==
LOC: HO.ENCR 07:46
PROVIDERS: PCP Internal Medicine; Visit Provider Internal Medicine Endocrinology, Diabetes & Metabolism
DX: E11.65 Type 2 diabetes mellitus with hyperglycemia (principal); Z79.4 Long term (current) use of insulin
CPT/HCPCS: 99205

== ENCOUNTER → 2025-04-17 07:45 | Outpatient (BNVA) | payer OTHER, SELFPAY | PROVIDERS: PCP Internal Medicine; Visit Provider Internal Medicine Endocrinology, Diabetes & Metabolism | DX: E11.65 Type 2 diabetes mellitus with hyperglycemia (principal) | CPT/HCPCS: 82947; 83036 ==

== ENCOUNTER 2025-04-17 09:00 | Outpatient (REF) | payer OTHER, SELFPAY ==
[2025-04-17 10:49] LABS: Appearance Urine Clear; Glucose Urine UA Negative (Negative); PH 7.5 (5.0-9.0); Specific Gravity - Urine 1.020 (1.005-1.025)
[2025-04-17 10:57] LABS: Hemoglobin A1C 236.7896 umol/L; Total Hemoglobin (HGBA1C) 3642.4061 umol/L
[2025-04-17 11:20] LABS: Alanine Aminotransferase 24 U/L (0-40); Albumin Level 4.8 g/dL (3.5-5.0); Alkaline Phosphatase 59 U/L (39-117); Anion Gap 12 (12-20); Aspartate Amino Transferase 22 U/L (5-37); Blood Urea Nitrogen 14 mg/dL (9-16); Calcium 9.0 mg/dL (8.4-10.2); Carbon Dioxide 30 mmol/L (22-29); Chloride 105 mmol/L (96-108); Cholesterol 166 mg/dL (<200); Estimated Glomerular Filt Rate > 60; HDL Cholesterol 48 mg/dL (>40); Potassium 4.0 mmol/L (3.3-5.1); Sodium 143 mmol/L (135-145); Total Protein 7.3 g/dL (6.5-8.0); Triglycerides 40 mg/dL (<150)
[2025-04-17 11:25] LABS: Microalbum/Creatinine Ratio Ur 7.5 ug/mg cr (<30)
== END 2025-04-17 09:01 | disposition home or self-care (01) ==
LOC: HO.10HDL 09:00
DX: E11.65 Type 2 diabetes mellitus with hyperglycemia (principal); E78.5 Hyperlipidemia, unspecified; E66.9 Obesity, unspecified
CPT/HCPCS: 36415; 80053; 80061; 81003; 82043; 82570; 83036; 84443

== ENCOUNTER 2025-05-20 07:55 | Outpatient (AMB) | payer OTHER, SELFPAY ==
--- NOTE | 2025-05-20 07:59 | A.OFFVIS_ITS ---
Vital Signs 05/20/25 08:01 Height 5 ft 8 in Weight 232 lb 9.403 oz BMI 35.4 BP 126/74 Blood Pressure Location Rt brachial Position Sitting Pulse 74 Pulse Source Pulse Oximeter Pulse Oximetry (%) 97 Oxygen Delivery Method Room Air Intake Visit Reasons: Type 2 diabetes mellitus with hyperglycemia Intake Note: Patient present today for T2DM. Patient receives Dexcom G7 supplies through: [employer]. Last Diabetic Eye exam: a couple months ago, [facility] Last Podiatry Visit: Does not see a Commercial Fishing Vessel Operator Random Glucose: 138 mg/dl HgA1C: 8.3% 04/17/2025 Balancing Machine Operator Required: No Accompanied by: Spouse Allergies amoxicillin (AMOXICILLIN) Allergy (Unknown, Verified 05/20/25 08:02) SWELLING sulfamethoxazole (From BACTRIM) Allergy (Unknown, Verified 05/20/25 08:02) UNKNOWN trimethoprim (From BACTRIM) Allergy (Unknown, Verified 05/20/25 08:02) UNKNOWN Medication List - Last Reconciled 05/20/25 by Timothy Peter MD atorvastatin 10 mg PO BEDTIME blood sugar diagnostic (OneTouch Verio test strips) As directed check blood sugar three times a day blood-glucose meter (OneTouch Verio Reflect Meter) As directed check blood sugar three times a day blood-glucose sensor (Dexcom G7 Sensor device) As directed blood-glucose,manager study,cont (Dexcom G7 Armed Security Officer) As directed insulin glargine (Lantus Solostar U-100 Insulin) 10 units (0.1 mL) subcut DAILY lancets As directed check blood sugar three times a day lisinopril 10 mg PO DAILY magnesium oxide 400 mg PO DAILY metformin ER 1,000 mg (2 x 500 mg) PO BID sildenafil 50 mg PO DAILY PRN tirzepatide (Mounjaro) 2.5 mg (0.5 mL) subcut QWEEK HPI Comments Details: 49 YO M who is seen in consultation for T2DM at the request of PCP. Initially diagnosed with T2DM in 01/2025 . Was initially started on treatment with metformin . Current regimen . Metformin 1000mg BID tolerating . Mounjaro 2.5 mg Q rachelle [place] Has Dexcom Dexcom download shows he is using the sensor 95% of the time. Average glucose is 132 with G mi of 6.5%. 96% range with 4% hyperglycemia and no hypoglycemia Treats lows with protein bar . Checks sugar after to ensure it is rising. Treats according to rule of 15's. Family history of T2DM in father Type 2 . Has eyes checked yearly, last eye exam 02/2025 , denies retinopathy. Denies neuropathy, not sees podiatry. Denies nephropathy, on SANDI/ARB. UAC [] as measured on []. Has HLD, on statin. Last LDL 11/04. Repeat requested by primary care provider Denies CAD. Not Had diabetes education. [facility] Medical History Obesity (BMI 30-39.9) Surgical History Hx of esophagogastroduodenoscopy (~05/13/15) History of colonoscopy (~05/13/15) No pertinent past surgical history Social History Housing: House Patient Tobacco Use Status: Never used Tobacco e-Cigarette/Vaping Use: Never Used service: No Current occupational status: employed Current occupational exposures/hazards: No Cognitive needs: No Hearing needs: No Vision needs: No Physical Exam Absence of Cushingoid features. Absence of acromegalic features. Neck exam reveals nl size thyroid about 15 gms. No thyroid nodules palpable. No carotid bruits present. Lungs CTA. Heart S1 S2, Reg R/R. No M/R/ G. Skin exam reveals absence of vitiligo or acanthosis nigricans. Abdominal exam reveals Soft NT/ND with NA BS. No organomegaly present. Neck Other: . Extrem Other: Visual exam of foot performed. No ulcerations or open lesions. No onchomycosis, no callouses.Pulses 2 + distally Sensation intact to monofilament exam. Vibratory sensation sensed is decreased with 128 Hz tuning fork Assessment & Plan Assessment & Plan (1) Uncontrolled diabetes mellitus with hyperglycemia: Code(s): E11.65 - Type 2 diabetes mellitus with hyperglycemia Category: Medical Qualifiers: Diabetes mellitus type: type 2 Qualified Code(s): E11.65 - Type 2 diabetes mellitus with hyperglycemia Plan: This is a 49-year-old white male with a history of type 2 diabetes being treated with metformin and Mounjaro with excellent improved glycemic control and no known microvascular or macrovascular complication The plan is to continue the current regimen. We will have patient follow up with primary care diabetes team in about 4 months Orders: Orders Lipid Panel 2 Months E11.65 - Type 2 diabetes mellitus with hyperglycemia Medications: New tirzepatide (Mounjaro) 5 mg (0.5 mL) subcut QWEEK 2 mL 4RF Discontinued tirzepatide (Mounjaro) for 4 weeks Discontinued Reason: Doctor's Order 2.5 mg (0.5 mL) subcut QWEEK 2 mL 5RF Coding Level of Care Code Est Pt Level 4 (60625) Complex EM visit Add On G2211 Diagnoses Uncontrolled type 2 diabetes mellitus with hyperglycemia E11.65 Diabetes mellitus type: type 2
[2025-05-20 08:01] VITALS: BP 126/74; PULSE 74; O2SAT 97; BMI 35.4
--- OUTSIDE RECORDS SUMMARY | 2025-05-20 08:01 | XMS_ITS | Patient Health Record ---
Author Organization [facility] Address [address] [place] [address] Care Team Providers Care Garage Door Installer Name Role Phone Sai (RETIRED) Jeanmarie FOSTER Primary Care Provide r Bj Angeles Jr Unavailable [phone] Allergies Allergen (clinical drug ingredient) Drug/Non Drug [...] Problem Status W/U Status Risk Notes Problem [id number] Vomiting (787.03) Active confirmed Problem [id number] Abnormal CT scan , gastrointestinal tract (793.4) Active confirmed Plan Of Treatment Future Test Test Name Order Date UPPER GI ENDOSCOPY 04/23/2015 COLONOSCOPY 04/23/2015 Insurance Providers Payer Name Payer Address Payer Phone Subscriber Number Group Number Insured Name Patient Relationship to Insured Coverage Start Date Coverage End Date [facility] [address] [place], [place] [id number] KUSH RIVERA Self - patient is the insured Medical (General) History Medical History History ICD Code Denies PA,DM,CVA,Lung disease,renal dise ase
--- OUTSIDE RECORDS SUMMARY | 2025-05-20 08:01 | XMS_ITS | Clinical Summary ---
Author Organization [facility] Address [address] [facility] [address] [place] [id number] Phone Care Team Providers Care Automotive Consultant Name Role Phone Jeanmarie Gibbs MD Primary [...] COLONOSCOPY 2021 SCREENING FOR DIABETES 05/21/2022 05/21/2019 INFLUENZA VACCINE (#1) 2025 COVID-19 VACCINE (3 2024-2 6 season) 2025 04/14/2021, 03/24/2021 SMOKING STATUS SCREENING (On ce [...] topic Medical Devices Not on file Insurance [address] [place], [place] [id number] [place], [place] [id number] [place] [id number] [facility] Address: [address] [address] Care Teams Automotive Consultant Relationship Specialty Start Date End Date Jeanmarie Gibbs MD [address] [place] [address] Dr [place] [address] [place] [id number] PCP - General Internal Medicine 05/21/19 Additional Source Comments The information contained in this document represents components of the legal health record. It is not the complete legal health record.[facility]
[2025-05-20 08:10] LABS: Glucose, Whole Blood 138 mg/dL (60-115)
== END 2025-05-20 08:19 | disposition home or self-care (01) ==
LOC: HO.ENCR 07:55
PROVIDERS: PCP Internal Medicine; Visit Provider Internal Medicine Endocrinology, Diabetes & Metabolism
DX: E11.65 Type 2 diabetes mellitus with hyperglycemia (principal)
CPT/HCPCS: 99214; G2211

== ENCOUNTER → 2025-05-20 07:55 | Outpatient (BNVA) | payer OTHER, SELFPAY | PROVIDERS: PCP Internal Medicine; Visit Provider Internal Medicine Endocrinology, Diabetes & Metabolism | DX: E11.65 Type 2 diabetes mellitus with hyperglycemia (principal); Z96.49 Presence of other endocrine implants; Z68.35 Body mass index [BMI] 35.0-35.9, adult | CPT/HCPCS: 82947 ==

== ENCOUNTER 2025-05-29 15:40 | Outpatient (AMB) | payer OTHER, SELFPAY ==
[2025-05-29 15:57] VITALS: BP 138/90; PULSE 74; RESP 18; TEMP 36.4; O2SAT 96; BMI 34.5
--- NOTE | 2025-05-29 15:57 | A.OFFPC_ITS ---
Vital Signs 05/29/25 15:57 05/29/25 16:50 Height 5 ft 8 in Weight 227 lb BMI 34.5 BP 138/90 H 142/94 H Blood Pressure Location Lt brachial Lt brachial Position Sitting Sitting Respiration 18 Pulse 74 Pulse Source Pulse Oximeter Temp 97.5 F Temp Source Temporal Artery Scan Pulse Oximetry (%) 96 Oxygen Delivery Method Room Air Intake Visit Reasons: 3 month f/u Supervisor Coil Winding Required: No Accompanied by: Self / Same As Patient Allergies amoxicillin (AMOXICILLIN) Allergy (Unknown, Verified 05/29/25 16:42) SWELLING sulfamethoxazole (From BACTRIM) Allergy (Unknown, Verified 05/29/25 16:42) UNKNOWN trimethoprim (From BACTRIM) Allergy (Unknown, Verified 05/29/25 16:42) UNKNOWN Medication List - Last Reconciled 05/29/25 by GEOFF Preston atorvastatin 10 mg PO BEDTIME blood sugar diagnostic (OneTouch Verio test strips) As directed check blood sugar three times a day blood-glucose meter (OneTouch Verio Reflect Meter) As directed check blood sugar three times a day blood-glucose sensor (Dexcom G7 Sensor device) As directed blood-glucose,master rigger,cont (Dexcom G7 Director Data Processing) As directed insulin glargine (Lantus Solostar U-100 Insulin) 10 units (0.1 mL) subcut DAILY lancets As directed check blood sugar three times a day lisinopril 10 mg PO DAILY magnesium oxide 400 mg PO DAILY metformin ER 1,000 mg (2 x 500 mg) PO BID sildenafil 50 mg PO DAILY PRN tirzepatide (Mounjaro) 5 mg (0.5 mL) subcut QWEEK Tobacco use date assessed: 05/29/25 Dental Screening Dental Screen Date: 05/29/25 Did you have a dental visit in the last 12 months?: Yes Did you have a dental problem in the last 6 months where you did not have access to dental care?: No Was dental information given to patient?: Patient has dentist HPI 3 month f/u HPI Details The patient is a 49-year-old male presenting with the management of diabetes mellitus, hypertension, and hyperlipidemia. The patient's diabetes mellitus is currently managed with an A1c of 6.5%, indicating good control. The patient has been following dietary recommendations to maintain blood sugar levels. Hypertension was noted with a concern about the diastolic blood pressure reading, which was slightly elevated during the visit. The patient has been advi sed to monitor blood pressure at home to provide more accurate readings. Hyperlipidemia management includes monitoring LDL cholesterol levels, which are slightly above the target for diabetic patients. The patient is encouraged to continue dietary modifications to improve lipid profile. [facility] Medical History Obesity (BMI 30-39.9) Surgical History Hx of esophagogastroduodenoscopy (~05/13/15) History of colonoscopy (~05/13/15) No pertinent past surgical history Social History Housing: House Patient Tobacco Use Status: Never used Tobacco e-Cigarette/Vaping Use: Never Used service: No Current occupational status: employed Current occupational exposures/hazards: No Cognitive needs: No Hearing needs: No Vision needs: No Questionnaire PHQ-9 Over the last 2 weeks, how often have you been bothered by any of the following problems? 1. Little interest or pleasure in doing things: not at all 2. Feeling down, depressed, or hopeless: not at all 3. Trouble falling or staying asleep, or sleeping too much: not at all 4. Feeling tired or having little energy: not at all 5. Poor appetite or overeating: not at all 6. Feeling bad about yourself - or that you are a failure or have let yourself or your family down: not at all 7. Trouble concentrating on things, such as reading the newspaper or watching television: not at all 8. Moving or speaking so slowly that other people could have noticed. Or the opposite - being so fidgety or restless that you have been moving around a lot more than usual: not at all 9. Thoughts that you would be better off or of hurting yourself in some way: not at all Total score: 0 Depression Screening Interpretation: Negative Depression Screening Done: Yes Source: Developed by Drs. Timothy Menard, Meghan Castro, Raymon Barrios and colleagues, with an educational gera from [employer]. Thrive Questionnaire Date Thrive assessed: 02/14/25 I am a: Patient What is your living situation today?: I have a steady place to live Within the past 12 months, did the food you bought not last and you didn't have the money to get more?: Never true Within the past 12 months, did you worry whether your food would run out before you got money to buy more?: Never true Do you have trouble paying for medicines?: No Do you have trouble getting transportation to medical appointments?: No Do you have trouble paying your heating and electricity bill?: No Do you have trouble taking care of your child, family member or friend?: No Do you have trouble with day-to-day activities such as bathing, preparing meals, shopping, managing finances, etc.?: No Are you currently unemployed and looking for a job?: No Are you interested in more education?: No Please select the resources that you would like help with: None Currently or been in a relationship where the following occur: No concerns reported THRIVE Score: 0 AUDIT C Alcohol Use Questionnaire (AUDIT-C) 1. How often do you have a drink containing alcohol?: Never Total Score: 0 Score Reviewed/Action Taken: No TIARA-7 AMB Questionnaire TIARA-7 Date TIARA - 7 assessed: 02/21/25 Feeling nervous, anxious, or on edge: 0 = Not at all Not being able to stop or control worryin = Not at all Worrying too much about different things: 0 = Not at all Trouble relaxin = Not at all Being so restless that it is hard to sit still: 0 = Not at all Becoming easily annoyed or irritable: 0 = Not at all Feeling afraid as if something awful might happen: 0 = Not at all Total TIARA-7 score (0-4 normal; 5-9 mild; 10-14 moderate; 15-21 severe): 0 Source: Developed by Drs. Timothy Menard, Meghan Castro, Raymon Barrios and colleagues, with an educational gera from [employer]. Review of Systems Const Denies body aches, Denies chills, Denies fever(s), Denies headache(s) and Denies poor appetite Eyes Reports no additional complaints ENT Denies dysphagia, Denies dizziness, Denies headache(s) and Denies odynophagia Card Denies chest pain, Denies syncope, Denies edema, Denies irregular heart rhythm, Denies lightheadedness and Denies dyspnea Resp Denies cough and Denies dyspnea GI Denies abdominal pain, Denies constipation, Denies dysphagia, Denies diarrhea, Denies nausea, Denies odynophagia and Denies vomiting Reports no additional complaints Musc Reports no additional complaints and Denies abnormal gait Skin/Breast Reports system reviewed and no additional complaints, except as documented Neuro Denies abnormal gait, Denies dizziness, Denies syncope and Denies headache(s) Psych Reports no additional complaints Physical exam (Primary Care) Vital Signs: Last Vital Signs Temp 97.5 F 05/29/25 15:57 Pulse 74 05/29/25 15:57 Resp 18 05/29/25 15:57 BP 142/94 H 05/29/25 16:50 Pulse Ox 96 05/29/25 15:57 Oxygen Delivery Method Room Air 05/29/25 15:57 BMI result Body Mass Index 34.5 Tobacco/Smoking Status: Tobacco use Status Tobacco use date assessed 05/29/25 05/29/25 15:59 Patient Tobacco Use Status Never used Tobacco 05/29/25 15:59 e-Cigarette/Vaping Use Never Used 05/29/25 15:59 PHQ-9: PHQ-9 Score PHQ-9: Total score 0 05/29/25 16:51 Depression Screening Interpretation: Negative Thrive Assessment: Date of Thrive Assessment Date Thrive assessed 02/14/25 05/29/25 15:59 Currently or been in a relationship where the following occur: No concerns reported Const General: cooperative, healthy appearing, comfortable and no acute distress Orientation/consciousness: patient oriented x3 HENMT Head: Yes normocephalic Ears: hearing grossly normal bilaterally General nose exam: Normal external nose present Eyes General: appearance normal, both eyes and all related structures Conjunctivae: conjunctivae normal Neck Neck: Yes full ROM and Yes no lymphadenopathy Resp Effort & Inspection: normal respiratory effort Auscultation: clear to auscultation bilaterally, no crackles, no rales, no rhonchi and no wheezes Cardio Rate: regular rate Rhythm: regular rhythm Skin General skin exam: no rashes or lesions noted Neuro General: patient oriented x3 Gait exam (Neuro): Normal gait present Extrem General: Yes normal to inspection, Yes full ROM and No edema Psych Affect: normal affect Attitude: cooperative Insight: Good insight present (Psych) Judgement: Good judgement present (Psych) Results Reviewed Results Reviewed: 6.5 Coding Level of Care Code Est Pt Level 4 (79077) Diagnoses Hypertension, unspecified type I10 Hypertension type: unspecified Hyperlipidemia, unspecified hyperlipidemia type E78.5 Hyperlipidemia type: unspecified New onset type 2 diabetes mellitus E11.9 Obesity (BMI 30-39.9) E66.9 Time Spent (min) 38 Assessment & Plan Assessment & Plan (1) HTN (hypertension): Code(s): I10 - Essential (primary) hypertension Category: Medical Qualifiers: Hypertension type: unspecified Qualified Code(s): I10 - Essential (primary) hypertension Plan: Blood pressure 142/94 in office, systolic goal less than 130 mmhg Hypertension management includes monitoring blood pressure at home due to concerns about elevated diastolic readings during the visit. The patient is advised to record these readings and report them for further evaluation. Continue lisinopril 10 mg daily. Reinforced low-salt diet (2) HLD (hyperlipidemia): Code(s): E78.5 - Hyperlipidemia, unspecified Category: Medical Qualifiers: Hyperlipidemia type: unspecified Qualified Code(s): E78.5 - Hyperlipidemia, unspecified Plan: Triglycerides 40, total cholesterol 166, LDL 110, HDL 48 Hyperlipidemia management involves monitoring LDL cholesterol levels, which are slightly above the target for diabetic patients. Dietary modifications are recommended to improve lipid profile. Continue atorvastatin 10 mg at bedtime We will recheck lipid panel in 3 months (3) New onset type 2 diabetes mellitus: Code(s): E11.9 - Type 2 diabetes mellitus without complications Category: Medical Plan: The patient's diabetes mellitus is currently well-managed with an A1c of 6.5%. Continued adherence to dietary recommendations is advised to maintain blood sugar levels. Continue metformin ER 1000 mg b.i.d., Mounjaro 5 mg subQ q.week, Lantus 10 units subQ daily, follow up with Endocrinology as scheduled. We will continue to monitor fasting glucose and A1c (4) Obesity (BMI 30-39.9): Code(s): E66.9 - Obesity, unspecified Category: Medical Plan: Encouraged to exercise for at least 30 minutes a day/5 days a week Healthy eating discussed. Encouraged to eat fruits/vegetables, protein- fish/baked chicken, and to avoid salty/fried foods, sweets, caffeine and carbohydrates. Encouraged to increase water intake 6-8 glasses a day Orders: Orders Complete Blood Count Auto Diff 3 Months . - Type 2 diabetes mellitus with hyperglycemia, E66.9 - Obesity, unspecified, E78.5 - Hyperlipidemia, unspecified, I10 - Essential (primary) hypertension UA CC w/rflx Micro + Cult 3 Months - Type 2 diabetes mellitus with hyperglycemia, E66.9 - Obesity, unspecified, E78.5 - Hyperlipidemia, unspecified, I10 - Essential (primary) hypertension Comprehensive [place]. Panel Fast 3 Months - Type 2 diabetes mellitus with hyperglycemia, E66.9 - Obesity, unspecified, E78.5 - Hyperlipidemia, unspecified, I10 - Essential (primary) hypertension Lipid Panel 3 Months - Type 2 diabetes mellitus with hyperglycemia, E66.9 - Obesity, unspecified, E78.5 - Hyperlipidemia, unspecified, I10 - Essential (primary) hypertension TSH reflex Free T4 3 Months - Type 2 diabetes mellitus with hyperglycemia, E66.9 - Obesity, unspecified, E78.5 - Hyperlipidemia, unspecified, I10 - Essential (primary) hypertension Vitamin D 25-OH Total 3 Months - Type 2 diabetes mellitus with hyperglycemia, E66.9 - Obesity, unspecified, E78.5 - Hyperlipidemia, unspecified, I10 - Essential (primary) hypertension
[2025-05-29 16:50] VITALS: BP 142/94
--- OUTSIDE RECORDS SUMMARY | 2025-05-29 16:55 | XMS_ITS | Clinical Summary ---
Author Organization [facility] Address [address] [place] [phone] Phone Care Team Providers Care Clinical Rn Liaison Name Role Phone Jeanmarie Gibbs MD Primary [...] topic Medical Devices Not on file Insurance [address] [place] [id number] [place] [id number] [place] [address] [facility] Address[place] [address] [address] Care Teams Clinical Rn Liaison Relationship Specialty Start Date End Date Jeanmarie Gibbs MD [address] [place] [address] Dr [place] [address] [place] [id number] PCP - General Internal Medicine 05/21/19 Additional Source Comments The information contained in this document represents components of the legal health record. It is not the complete legal health record.[facility]
== END 2025-05-29 17:41 | disposition home or self-care (01) ==
LOC: HO.HMCH 15:40
PROVIDERS: PCP Internal Medicine
DX: E11.69 Type 2 diabetes mellitus with other specified complication (principal); E66.9 Obesity, unspecified; Z68.34 Body mass index [BMI] 34.0-34.9, adult; E78.5 Hyperlipidemia, unspecified; I10 Essential (primary) hypertension

== ENCOUNTER 2025-06-05 10:43 | Outpatient (AMB) | payer OTHER, SELFPAY ==
--- NOTE | 2025-06-05 11:12 | A.OFFVIS_ITS ---
VS Expanded 06/05/25 11:14 Height 5 ft 8 in Weight 220 lb 7.396 oz BMI 33.5 Intake Visit Reasons: Type 2 diabetes mellitus with hyperglycemia Allergies amoxicillin (AMOXICILLIN) Allergy (Unknown, Verified 05/29/25 16:42) SWELLING sulfamethoxazole (From BACTRIM) Allergy (Unknown, Verified 05/29/25 16:42) UNKNOWN trimethoprim (From BACTRIM) Allergy (Unknown, Verified 05/29/25 16:42) UNKNOWN Nutrition Presentation Details: Pt presents for MNT for T2DM Dx with T2DM in 02/2025 Pt reports working on choosing lower carb foods picky with flavor/foods mostly veg (ARDI) . however including them /disguised in meals Pt on mounjaro, reports feeling full quickly, denies hypoglycemia BS Monitoring Most Recent Diabetes Results: Microalb/Creat Ratio, (<30) 7.5 ug/mg cr 04/17/25 Cholesterol, (<200) 166 mg/dL 04/17/25 HDL Cholesterol, (>40) 48 mg/dL 04/17/25 Triglycerides, (<150) 40 mg/dL 04/17/25 Creatinine, (0.5-1.4) 0.85 mg/dL 04/17/25 BUN, (9-16) 14 mg/dL 04/17/25 Sodium, (135-145) 143 mmol/L 04/17/25 Potassium, (3.3-5.1) 4.0 mmol/L 04/17/25 Chloride, (96-108) 105 mmol/L 04/17/25 Carbon Dioxide, (22-29) 30 mmol/L H 04/17/25 Calcium, (8.4-10.2) 9.0 mg/dL Δ 04/17/25 AST, (5-37) 22 U/L 04/17/25 ALT, (0-40) 24 U/L 04/17/25 Total Protein, (6.5-8.0) 7.3 g/dL 04/17/25 Albumin, (3.5-5.0) 4.8 g/dL 04/17/25 [id number]-[id number].Jeor Equation Height: 5 ft 8 in Weight: 220 lb Resting Metabolic Rate: 1845.25 Calculated Activity Level: Mild Activity Calories Needed to Maintain Weight: 2537.22 Diagnosis Nutrition problem #1: food nutri know defi As related to (etiology) #1: diagnosis As evidenced by (sign/symptom) #1: knowledge deficit of diet [facility] Medical History Obesity (BMI 30-39.9) Surgical History Hx of esophagogastroduodenoscopy (~05/13/15) History of colonoscopy (~05/13/15) No pertinent past surgical history Social History Housing: House Patient Tobacco Use Status: Never used Tobacco e-Cigarette/Vaping Use: Never Used service: No Current occupational status: employed Current occupational exposures/hazards: No Cognitive needs: No Hearing needs: No Vision needs: No Assessment & Plan Assessment & Plan (1) New onset type 2 diabetes mellitus: Code(s): E11.9 - Type 2 diabetes mellitus without complications Category: Medical Plan: current wt: 100 kg ( 06/05 ) est kcal needs as per MSJ: 2500 est protein needs as per 1 g/kg BW: 100 est fluid needs as per 30 ml/kg BW: 3000 Recommended fiber > 12 g /day and gradually increase up to 25-28 g /day or as tolerated Nutrition topics discussed : Reviewed (R), Pt verbalized understanding (V) , not applicable (N/A) R, V, : Healthy Plate Method Concept: R, : Carbohydrates: food sources of carbohydrates, relationship of carbohydrates to blood glucose, fatty liver GI health. Recommended total amount of carbohydrates per meals and snack. Differences between simple carbohydrates and complex carbohydrates R, : Lean protein foods including vegan , vegetarian sources of protein. Benefits of protein (including but not limited to healing, nutritional value , benefits in weight loss, glucose control R,: Fats : Source of fats, benefits of fats. Difference between saturated and unsaturated fats. Saturated fats and its contribution to inflammation R, : Fiber: food sources and role of fiber in the diet (including but not limited to its role as a prebiotic, benefits in constipation, role in IBS , role in glucose control and cholesterol level) R, V, N/A: Hydration: role of hydration and prevention of dehydration or over hydration. Foods and water content. R, V, N/A: Vitamins and Minerals in foods and supplements R, V, N/A: Interpreting food labels, including serving size, macronutrients, vitamins, minerals, allergens, ingredient list , % daily value Patient Instructions: Work n reducing total carb per meal to 40-60 g with at least 2-3 oz of lean protein, 3m eals/day and 0-20 g carb as snack Keep hydrated by choosing water, low sugar beverages keep physically active as able Coding Level of Care Code Nutr Indiv Intake (86279) Diagnoses New onset type 2 diabetes mellitus E11.9 Time Spent (min) 30
[2025-06-05 11:14] VITALS: BMI 33.5
[2025-06-05 13:38] VITALS: BMI 33.4
== END 2025-06-05 11:39 | disposition home or self-care (01) ==
LOC: HO.ENCR 10:44
PROVIDERS: PCP Internal Medicine; Visit Provider Dietitian, Registered
DX: E11.9 Type 2 diabetes mellitus without complications (principal)

== ENCOUNTER → 2025-06-05 10:43 | Outpatient (BNVA) | payer OTHER, SELFPAY | PROVIDERS: PCP Internal Medicine; Visit Provider Dietitian, Registered | DX: E11.65 Type 2 diabetes mellitus with hyperglycemia (principal) | CPT/HCPCS: 97802 ==

== ENCOUNTER 2025-08-20 07:43 | Outpatient (AMB) | payer OTHER, SELFPAY ==
--- NOTE | 2025-08-20 07:59 | A.OFFVIS_ITS ---
Intake Intake Visit Reasons: T2DM Telephone Station Installer Required: No Accompanied by: Self / Same As Patient Allergies amoxicillin (AMOXICILLIN) Allergy (Unknown, Verified 05/29/25 16:42) SWELLING sulfamethoxazole (From BACTRIM) Allergy (Unknown, Verified 05/29/25 16:42) UNKNOWN trimethoprim (From BACTRIM) Allergy (Unknown, Verified 05/29/25 16:42) UNKNOWN HPI Comprehensive Diabetes Asmnt Most Recent Diabetes Results: 2 Microalb/Creat Ratio, (<30) 7.5 ug/mg cr 04/17/25 Cholesterol, (<200) 166 mg/dL 04/17/25 HDL Cholesterol, (>40) 48 mg/dL 04/17/25 Triglycerides, (<150) 40 mg/dL 04/17/25 Creatinine, (0.5-1.4) 0.85 mg/dL 04/17/25 BUN, (9-16) 14 mg/dL 04/17/25 Sodium, (135-145) 143 mmol/L 04/17/25 Potassium, (3.3-5.1) 4.0 mmol/L 04/17/25 Chloride, (96-108) 105 mmol/L 04/17/25 Carbon Dioxide, (22-29) 30 mmol/L H 04/17/25 Calcium, (8.4-10.2) 9.0 mg/dL Δ 04/17/25 AST, (5-37) 22 U/L 04/17/25 ALT, (0-40) 24 U/L 04/17/25 Total Protein, (6.5-8.0) 7.3 g/dL 04/17/25 Albumin, (3.5-5.0) 4.8 g/dL 04/17/25 [facility] Medical History Obesity (BMI 30-39.9) Surgical History Hx of esophagogastroduodenoscopy (~05/13/15) History of colonoscopy (~05/13/15) No pertinent past surgical history Social History Housing: House Patient Tobacco Use Status: Never used Tobacco e-Cigarette/Vaping Use: Never Used service: No Current occupational status: employed Current occupational exposures/hazards: No Cognitive needs: No Hearing needs: No Vision needs: No Assessment & Plan Assessment & Plan (1) Uncontrolled diabetes mellitus with hyperglycemia: Code(s): E11.65 - Type 2 diabetes mellitus with hyperglycemia Qualifiers: Diabetes mellitus type: type 2 Qualified Code(s): E11.65 - Type 2 diabetes mellitus with hyperglycemia Plan: Learning objectives: The patient was provided with verbal and written education on the following topics as outlined below. The patient met all learning objectives and was able to verbalize understanding and provide teach back of education topics discussed . The patient was provided with the opportunity to ask questions and all questions were answered. Patient Assessment Assess patient education level/literacy/barriers patient diagnosed in January 2025 with diabetes after visit to the emergency room due to symptoms of hyperglycemia Last A1c April 2025 8.3% Patient is on Mounjaro 5 mg weekly Reports he has dramatically reduce carbohydrate intake since diagnosis, reports a weight loss of approximately 60 lb. 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 Pathophysiology How the body produces and uses insulin Identify type of DM Risk factors Signs of Diabetes Brief overview of Diabetes Management Monitoring blood sugar Following a meal plan Regular exercise Maintaining a healthy weight Taking medication as needed Members of the care team (PCP, RN, MA, RD, CDE, experimental worker) Blood glucose monitoring When/how often to test Target blood sugar ranges Introduction to Nutrition Importance of healthy diet in managing DM Diet is personalized to individual preference Review patient?s regular diet/food preferences Who prepares meals/does food shopping/ Dining out?/ Barriers? How diet effects glucose Eating 3 balanced meals a day with small, healthy snacks between meals Review food groups Carbohydrates: What is a carbohydrate/Which food/food groups are considered carbohydrates Effect of carbohydrates on blood glucose Portion sizes Reading food labels Basic carb counting (if applicable per nursing assessment) Plate method Meal planning Recommendations: Follow plate method, consistent carbs and read nutritional labels. Smart Goal: Patient will add 10-15 minutes of physical activity a day between now and next visit Educational Materials: The patient was provided with the following written educational materials: Planning Healthy Meals Handout Patient Response to instructions: Comprehension of Instructions: Good Readiness to make changes: Contemplation How confident they feel about making changes: Positive Portions of this note were created using voice recognition software, please excuse any words or phrases that may have been misinterpreted. Patient Instructions: Include regular daily activity. ADA recommends 30 minutes of exercise 5 days a week. Weight loss talk to PCP or Bellstand Attendant before starting new plan. Test blood sugar as directed; Fasting and 2hpp largest meal. Watch trends in results. Utilize results and to assess how food, physical activity and medications affect blood sugar results. Bring glucometer or CGM to next visit. Be knowledgeable about diabetes medication, its action, side effects, efficacy, toxicity, prescribed dosage, appropriate timing and frequency of administration, effect of missed and delayed doses and instructions for storage, travel and safety. Problem solving techniques to monitor hypo/hyperglycemia episodes and treatments. Reduce risk reduction behaviors, smoking cessation, regular eye, foot and dental examinations. Follow-up with Diabetes Education in 2 months Coding Level of Care Code Est Pt Level 1 (21059) Diagnoses Uncontrolled type 2 diabetes mellitus with hyperglycemia E11.65 Diabetes mellitus type: type 2
== END 2025-08-20 08:22 | disposition home or self-care (01) ==
LOC: HO.ENCR 07:45
PROVIDERS: PCP Internal Medicine; Visit Provider Registered Nurse Diabetes Educator
DX: E11.65 Type 2 diabetes mellitus with hyperglycemia (principal)
CPT/HCPCS: 99499